=== PATIENT | female | born 1960 | race Caucasian/White ===

== ENCOUNTER → 2023-10-13 17:03 | Outpatient (REF) | payer BC, SELFPAY | LOC: HWRAD 17:03 | PROVIDERS: ATTENDING PHYSICIAN Nurse Practitioner Adult Health | DX: M25.512 Pain in left shoulder (principal) | CPT/HCPCS: 73030 ==

== ENCOUNTER → 2024-01-25 07:14 | Outpatient (REF) | payer BC, SELFPAY | LOC: HWRAD 07:14 | PROVIDERS: ATTENDING PHYSICIAN Obstetrics & Gynecology; FAMILY PHYSICIAN Nurse Practitioner Adult Health | DX: Z13.820 Encounter for screening for osteoporosis (principal) | CPT/HCPCS: 77080 ==

== ENCOUNTER → 2024-02-01 16:54 | Outpatient (REF) | payer BC, SELFPAY | LOC: HWWDC 16:54 | PROVIDERS: ATTENDING PHYSICIAN Nurse Practitioner Adult Health; REFERRING PHYSICIAN Obstetrics & Gynecology | DX: Z12.31 Encounter for screening mammogram for malignant neoplasm of breast (principal) | CPT/HCPCS: 77063; 77067 ==

== ENCOUNTER → 2024-12-07 10:50 | Outpatient (REF) | payer BC, SELFPAY | LOC: EMG 10:50 | PROVIDERS: ATTENDING PHYSICIAN Nurse Practitioner Adult Health | DX: G56.11 Other lesions of median nerve, right upper limb (principal); R20.0 Anesthesia of skin | CPT/HCPCS: 95886; 95909 ==

== ENCOUNTER → 2025-03-12 15:25 | Outpatient (REF) | payer OTHER, SELFPAY | LOC: HWWDC 15:25 | PROVIDERS: ATTENDING PHYSICIAN Obstetrics & Gynecology; FAMILY PHYSICIAN Nurse Practitioner Adult Health | DX: Z12.31 Encounter for screening mammogram for malignant neoplasm of breast (principal) | CPT/HCPCS: 77063; 77067 ==